=== PATIENT | female | born 1985 | race American Indian/Alaskan Native ===

== ENCOUNTER 2017-08-25 18:25 | Emergency (ER) | payer OTHER, MEDICAID ==
[2017-08-25] MEDS ORDERED: Albuterol 0.083% 2.5 MG/3 ML Neb Soln INH ONE (18:26)
[2017-08-25] MEDS ORDERED: predniSONE 20 MG Tab PO ONE (18:26)
[2017-08-25] MEDS ORDERED: Albuterol/Ipratropium 3.0-0.5 MG/3 ML Neb Soln NEB ONE (19:22)
--- NOTE | 2017-08-25 19:25 | EDM.PDOC ---
ED HPI GENERAL MEDICAL PROBLEM - General Chief Complaint: Respiratory Problem Stated Complaint: [id number] CHEST HURTS WHEN SHE COUGHS Time Seen by Provider: 08/25/17 19:15 Source of Information: Reports: Patient History Limitations: Reports: No Limitations - History of Present Illness INITIAL COMMENTS - FREE TEXT/NARRATIVE: C/o sore throat and dry cough since yesterday, childhood hx of asthma. None recent. Dexcribes burning in chest worse with cough. Upper Chest Pain Score (Numeric/FACES): 5 - Related Data Allergies Allergy/AdvReac Type Severity Reaction Status Date / Time No Known Allergies Allergy Verified 08/25/17 18:55 Home Meds: Home Meds . [No Known Home Meds] 08/25/17 [History] Past Medical History - Past Health History Medical/Surgical History: Denies Medical/Surgical History Social & Family History - Family History Family Medical History: Noncontributory - Tobacco Use Smoking Status *Q: Unknown Ever Smoked Second Hand Smoke Exposure: No - Caffeine Use Caffeine Use: Reports: Soda - Recreational Drug Use Recreational Drug Use: No ED ROS GENERAL - Review of Systems Review Of Systems: See Below Constitutional: Reports: Chills HEENT: Reports: Throat Pain (from cough). Denies: Ear Pain, Sinus Problem Respiratory: Reports: Wheezing, Cough. Denies: Sputum Cardiovascular: Reports: No Symptoms GI/Abdominal: Reports: No Symptoms Skin: Reports: No Symptoms ED EXAM, GENERAL - Physical Exam Exam: See Below Exam Limited By: No Limitations General Appearance: Alert, No Apparent Distress Eye Exam: Bilateral Eye: EOMI Ears: Normal External Exam, Normal TMs Nose: Normal Inspection Throat/Mouth: Normal Inspection Head: Atraumatic, Normocephalic Neck: Normal Inspection, Full Range of Motion. No: Lymphadenopathy (L), Lymphadenopathy (R) Respiratory/Chest: No Respiratory Distress, Decreased Breath Sounds (bases greater right), Wheezing (right) Cardiovascular: Normal Peripheral Pulses, Regular Rate, Rhythm Neurological: Alert, Oriented, Normal Cognition Psychiatric: Normal Affect Skin Exam: Warm, Dry, Intact, Normal Color Course - Vital Signs Last Recorded V/S: Last Vital Signs Temp 98.5 F 08/25/17 19:06 Pulse 98 08/25/17 19:06 Resp 17 08/25/17 19:06 BP 122/66 08/25/17 19:06 Pulse Ox 94 L 08/25/17 19:06 - Orders/Labs/Meds Meds: Medications Discontinued Medications Generic Name Dose Route Start Last Admin Trade Name James LUQUE Reason Stop Dose Admin Albuterol Confirm 08/25/17 20:31 Proventil Neb Soln Administered 08/25/17 20:32 Dose 7.5 mg .ROUTE .STK-MED ONE Albuterol 7.5 mg 08/25/17 18:26 Proventil Neb Soln INH 08/25/17 18:27 .STK-MED ONE Albuterol/Ipratropium 3 ml 08/25/17 19:22 08/25/17 19:34 Duoneb 3.0-0.5 Mg/3 Ml NEB 08/25/17 19:23 3 ml ONETIME ONE Administration Prednisone Confirm 08/25/17 20:30 Prednisone Administered 08/25/17 20:31 Dose 40 mg .ROUTE .STK-MED ONE Prednisone 40 mg 08/25/17 18:26 Prednisone PO 08/25/17 18:27 .STK-MED ONE - Radiology Interpretation Free Text/Narrative:: CXR bilateral hyperinflation - Re-Assessments/Exams Free Text/Narrative Re-Assessment/Exam: 08/25/17 20:27 improved airexchange following neg. Absence of wheeze. Departure - Departure Time of Disposition: 20:23 Disposition: Home, Self-Care 01 Condition: Good Clinical Impression: Bronchitis - Discharge Information Instructions: Asthma, Adult, Acute Bronchitis, Adult, [id number] Referrals: Janette Tesfaye MD [Primary Care Provider] - Forms: ED Department Discharge Additional Instructions: albuterol nebulizer 2.5/3mg one every 4 hours as needed for cough increase fluids avoid smoke or other respiratory irritants prednisone 20mg daily x 3 then 10mg daily for 3 days follow up if symptoms worsen
[2017-08-25] MEDS ORDERED: predniSONE 20 MG Tab ONE (20:30)
[2017-08-25] MEDS ORDERED: Albuterol 0.083% 2.5 MG/3 ML Neb Soln ONE (20:31)
== END 2017-08-25 20:35 | disposition home or self-care (01) ==
LOC: DL.ED 18:25
DX: J40 Bronchitis, not specified as acute or chronic (principal)
CPT/HCPCS: 71046; 99283; A9270; J7620

== ENCOUNTER 2020-11-08 01:23 | Emergency (ER) | payer MEDICAID, OTHER ==
[2020-11-08] MEDS ORDERED: Triamcinolone Acetonide 40 MG/ML 1 ML SDV INJECT ONE (01:43)
--- NOTE | 2020-11-08 01:44 | EDM.PDOC ---
ED HPI GENERAL MEDICAL PROBLEM - General Chief Complaint: Bite:Animal, Insect Stated Complaint: ALERGIC REACTION ALL OVER BODY Time Seen by Provider: 11/08/20 01:45 Source of Information: Reports: Patient, RN, RN Notes Reviewed History Limitations: Reports: No Limitations - History of Present Illness INITIAL COMMENTS - FREE TEXT/NARRATIVE: Patient is a 35-year-old female who presents to ER with complaint of areas of itching on her body. Patient does have some welts on the neck/chest/back. States she has been itching quite a bit. She states this all began approximately midnight tonight. Patient states [place] was [place] in [place] earlier [place], but did denies having any bug bites. Patient states she did take Benadryl just prior to arrival. Onset: Today, Sudden - Related Data Allergies Allergy/AdvReac Type Severity Reaction Status Date / Time No Known Allergies Allergy Verified 11/08/20 01:38 Home Meds: Home Meds . [No Known Home Meds] 08/25/17 [History] Past Medical History - Past Health History Medical/Surgical History: Denies Medical/Surgical History Social & Family History - Family History Family Medical History: No Pertinent Family History - Tobacco Use Tobacco Use Status *Q: Never Tobacco User - Caffeine Use Caffeine Use: Reports: Coffee, Energy Drinks, Soda, Tea, Other - Recreational Drug Use Recreational Drug Use: No ED ROS GENERAL - Review of Systems Review Of Systems: Comprehensive ROS is negative, except as noted in HPI. ED EXAM, ANIMAL BITE - Physical Exam Exam: See Below Exam Limited By: No Limitations General Appearance: Alert, WD/WN, No Apparent Distress Eye Exam: Bilateral Eye: EOMI, Normal Inspection Ears: Normal External Exam, Hearing Grossly Normal Nose: Normal Inspection, Normal Mucosa, No Blood Throat/Mouth: Normal Inspection, Normal Lips, Normal Teeth, Normal Gums, Normal Oropharynx, Normal Voice, No Airway Compromise Head: Atraumatic, Normocephalic Neck: Normal Inspection, Supple, Non-Tender, Full Range of Motion Respiratory/Chest: No Respiratory Distress, Lungs Clear, Normal Breath Sounds, No Accessory Muscle Use, Chest Non-Tender Cardiovascular: Normal Peripheral Pulses, Regular Rate, Rhythm, No Edema, No Gallop, No JVD, No Murmur, No Rub Peripheral Pulses: 2+: Radial (L), Radial (R) GI/Abdominal: Normal Bowel Sounds, Soft, Non-Tender (Female) Exam: Deferred Rectal (Female) Exam: Deferred Back Exam: Normal Inspection, Full Range of Motion, NT Extremities: Normal Inspection, Normal Range of Motion, Non-Tender, Normal Cap illary Refill, No Pedal Edema Neurological: Alert, Oriented, Normal Cognition, Normal Gait, No Motor/Sensory Deficits Psychiatric: Normal Affect, Normal Mood Skin Exam: Normal Color, Warm/Dry, Rash (Small erythematous welts/hives to the neck/chest/back, arms) Lymphadenopathy: Bilateral: No Adenopathy Lymphatic: No Adenopathy Course - Vital Signs Last Recorded V/S: Last Vital Signs Temp 98.0 F 11/08/20 01:35 Pulse 84 11/08/20 01:35 Resp 16 11/08/20 01:35 BP 135/66 11/08/20 01:35 Pulse Ox 99 11/08/20 01:35 - Orders/Labs/Meds Meds: Medications Discontinued Medications Generic Name Dose Route Start Last Admin Trade Name James PRN Reason Stop Dose Admin Triamcinolone Acetonide 40 mg 11/08/20 01:43 11/08/20 01:58 Triamcinolone Acetonide 40 Mg/Ml 1 Ml Sdv INJECT 11/08/20 01:44 40 mg ONETIME ONE Administration Departure - Departure Time of Disposition: 02:23 Disposition: Home, Self-Care 01 Condition: Good Clinical Impression: Insect bites Qualifiers: Encounter type: initial encounter Site of insect bite: unspecified site Qualified Code(s): W57.XXXA - Bitten or stung by nonvenomous insect and other nonvenomous arthropods, initial encounter Contact dermatitis Qualifiers: Contact dermatitis type: allergic Contact dermatitis trigger: unspecified trigger Qualified Code(s): L23.9 - Allergic contact dermatitis, unspecified cause - Discharge Information *PRESCRIPTION DRUG MONITORING PROGRAM REVIEWED*: No *COPY OF PRESCRIPTION DRUG MONITORING REPORT IN PATIENT REBECCA: No Instructions: Contact Dermatitis, [id number] Forms: ED Department Discharge Additional Instructions: Continue to use Benadryl as directed Follow up with your primary care facility in the clinic Return to ER with any worsening of symptoms Sepsis Event Note (ED) - Evaluation Sepsis Screening Result: No Definite Risk - Focused Exam Vital Signs: Vital Signs Temp Pulse Resp BP Pulse Ox 11/08/20 01:35 98.0 F 84 16 135/66 99
== END 2020-11-08 02:35 | disposition home or self-care (01) ==
LOC: DL.ED 01:23
DX: S10.96XA Insect bite of unspecified part of neck, initial encounter (principal); S20.369A Insect bite (nonvenomous) of unspecified front wall of thorax, initial encounter; S40.862A Insect bite (nonvenomous) of left upper arm, initial encounter; S40.861A Insect bite (nonvenomous) of right upper arm, initial encounter; L23.9 Allergic contact dermatitis, unspecified cause; W57.XXXA Bitten or stung by nonvenomous insect and other nonvenomous arthropods, initial encounter
CPT/HCPCS: 96372; 99283; J3301